=== PATIENT | female | born 1980 | race Caucasian/White ===

== ENCOUNTER → 2023-11-27 12:25 | Outpatient (REF) | payer OTHER, SELFPAY | LOC: HWWDC 12:25 | PROVIDERS: ATTENDING PHYSICIAN Internal Medicine | DX: Z12.31 Encounter for screening mammogram for malignant neoplasm of breast (principal) | CPT/HCPCS: 77063; 77067 ==

== ENCOUNTER → 2024-12-28 11:30 | Outpatient (REF) | payer OTHER, SELFPAY | LOC: HWWDC 11:30 | PROVIDERS: ATTENDING PHYSICIAN Internal Medicine | DX: Z12.31 Encounter for screening mammogram for malignant neoplasm of breast (principal) | CPT/HCPCS: 77063; 77067 ==

== ENCOUNTER → 2025-01-13 08:53 | Outpatient (REF) | payer OTHER, SELFPAY | LOC: WDC 08:53 | PROVIDERS: ATTENDING PHYSICIAN Internal Medicine | DX: R92.8 Other abnormal and inconclusive findings on diagnostic imaging of breast (principal) | CPT/HCPCS: 76642 ==